=== PATIENT | female | born 2000 | race Caucasian/White ===

== ENCOUNTER 2022-06-26 09:24 | Emergency (ER) | payer MEDICAID, SELFPAY ==
[2022-06-26 09:25] VITALS: BP 124/69; PULSE 82; RESP 17; TEMP 36.7; O2SAT 99; BMI 30.2
--- NOTE | 2022-06-26 09:32 | PC.NURSE ---
pt ambulatory to restroom from registration area. No complications
--- NOTE | 2022-06-26 09:34 | INFXCTL.NOTE ---
0999 ED MD AT BEDSIDE FOR EVALUATION
--- NOTE | 2022-06-26 09:35 | PC.NURSE ---
KANCHAN BARLOW at for patient eval
--- NOTE | 2022-06-26 09:36 | US_ITS ---
FINAL REPORT TECHNIQUE: Sonographic images of the pelvis were obtained transvaginally. CLINICAL HISTORY: pain and bleeding,r/o torsion FINDINGS: The uterus is anteverted and anteflexed. It measures 7.9 x 4.9 x 4.1 cm. The endometrial stripe measures 4 mm. The myometrium is homogeneous. The cervix is within normal limits. The right ovary measures 2.6 x 3.7 x 2.3 cm. It is normal in appearance. The left ovary measures 4.7 x 3.6 x 3.2 cm. There is a septated 3.2 cm cyst.. Color imaging to the ovaries is within normal limits. There is no free fluid. IMPRESSION: 1. Normal sonographic appearance to the uterus. 2. Complex left ovarian cyst, likely functional. Recommend 6 or 10 week follow-up ultrasound. 3. No convincing evidence of ovarian torsion. Reviewed, Interpreted and Dictated by Chanda Lozoya MD Transcribed by Zehra Brian Authenticated and [facility]
--- NOTE | 2022-06-26 09:37 | PC.NURSE ---
UA sent to lab
[2022-06-26 09:46] LABS: Microscopic, Urine URINE MICROSCOPIC (MICROSCOPIC)
[2022-06-26 09:48] LABS: Appearance,Urine CLOUDY (Clear); Bilirubin,Urine Negative (Negative); Blood, Urine 3+ (Negative); Color,Urine RED (Yellow); Glucose,Urine (UA) Negative (Negative); Ketones,Urine Negative (Negative); Leukocyte Esterase,Urine Negative (Negative); Nitrate,Urine POSITIVE (Negative); PH,Urine 7.5 (5.0-8.5); Protein,Urine 1+ (Negative); Urobilinogen,Urine 0.2 EU/dl (0.2)
--- NOTE | 2022-06-26 09:48 | PC.NURSE ---
0946 THIS RN AT BEDSIDE WITH ED MD FOR VAG EXAM, PT TOLERATED WELL
--- NOTE | 2022-06-26 09:50 | PC.NURSE ---
RADIOLOGY NOTIFIED OF ORDERED US
--- NOTE | 2022-06-26 10:01 | HMH.EDGENADL ---
Discharge Plan Disposition Patient Disposition: Home, Self-Care Condition: Good Prescriptions Prescriptions: New hydrocodone-acetaminophen 5-325 mg tablet 1 tab PO Q8H PRN (Reason: pain) Qty: 7 0RF Referrals Follow up/Referrals: Provider,Referral, [Primary Care Provider] - See instructions Activity Restrictions/Add. Instructions Additional Instructions/Restrictions: Pelvic rest: Avoid exertion and intercourse until symptoms subside Clinical Impressions Clinical Impression: Vaginal bleeding, Ovarian cyst Discharge ED Provider: Dmitri Aj General Adult HPI General Chief complaint: Vaginal Bleeding Stated complaint: Bleeding 10 days abd pain Time Seen by Provider: 06/26/22 09:33 Mode of Arrival: Ambulatory Source of Information: Patient Limitations: No Limitations Description of Symptoms (Recalled from ER Triage Doc. by RN): PT WITH HX OF ENDOMETRIOSIS. REPORTS 10 DAYS OF VAGINAL BLEEDING WITH CLOTS AND ABDOMINAL PAIN History of Present Illness HPI narrative: Patient presents with a 10-day history of vaginal bleeding including passing of clots and lower abdominal discomfort. She states she had similar episodes in the past and has been told that she has endometriosis. She denies at this time. She describes her symptoms as moderate to severe and without exacerbating or alleviating factors. Related Data Previous Rx's Medication Instructions Recorded hydrocodone 5 mg-acetaminophen 325 1 tab PO Q8H PRN pain #7 tabs 06/26/22 mg tablet Allergies Allergy/AdvReac Type Severity Reaction Status Date / Time amoxicillin Allergy Verified 06/26/22 10:22 Penicillins Allergy Verified 06/26/22 10:22 Sulfa (Sulfonamide Allergy Verified 06/26/22 10:22 Antibiotics) [facility] Disclaimer: The information contained in this section may have been updated after the patient was seen, as this information can be updated by other users. Medical History Endometriosis Surgical History H/O section History of tonsillectomy and adenoidectomy Hx of cholecystectomy Hx of tubal ligation Family History Other No significant family history Social History Smoking Status: Never smoker alcohol intake: never current occupational status: unemployed Travel in the last 8 weeks: None ROS Obtained: Yes All systems reviewed & no additional complaints except as documented Physical Exam General General appearance: alert and in no apparent distress Head Head exam: atraumatic, normocephalic and normal inspection Eye Eye exam: Present normal appearance, PERRL and EOMI ENT ENT exam: Present normal exam, normal oropharynx, mucous membranes moist, TM's normal bilaterally and normal external ear exam Neck Neck exam: Present normal inspection, full ROM and trachea midline; Absent meningismus or lymphadenopathy Chest Chest inspection: Present normal inspection and symmetric chest wall rise; Absent tenderness Respiratory Respiratory exam: Present normal lung sounds bilaterally; Absent respiratory distress Cardiovascular Cardiovascular exam: Present regular rate and normal rhythm; Absent JVD Abdominal Exam Abdominal exam: Present other (There is lower abdominal tenderness without rebound or guarding.) External exam: Present other (Blood clots are present vaginally without appreciable active bleeding. The os is closed. There is no cervical motion tenderness although there is adnexal and uterine tenderness) Extremities Exam Extremities exam: Present normal inspection, full ROM and normal capillary refill; Absent calf tenderness Back Exam Back exam: Present normal inspection; Absent tenderness Neurological Exam Neurological exam: Present alert and oriented X3 Psychiatric Psychiatric exam: Present
[2022-06-26 10:15] LABS: Bacteria,Urine Trace /lpf; RBC,Urine TNTC #/hpf (0-3); WBC,Urine Occasional #/hpf (0-3)
--- NOTE | 2022-06-26 10:15 | PC.NURSE ---
pt to US
[2022-06-26 10:16] LABS: Urine Pregnancy, HCG Qual. Negative (Negative)
--- NOTE | 2022-06-26 10:35 | PC.NURSE ---
PT RETURNED FROM US, REPORT GIVEN TO DR. CENTENO PER Jayy CHANEY, RADIOLOGY
[2022-06-26 10:42] VITALS: BP 115/65; PULSE 74; O2SAT 98
--- NOTE | 2022-06-26 10:47 | PC.NURSE ---
Rounded on patient; Call light within reach, pt given a pillow for comfort and is aware that we are waiting on test results.
[2022-06-26 11:11] LABS: Basophils # 0.1 K/mm3 (0-0.2); Eosinophils % 14.5 % (0.1-12.0); Hematocrit 36.3 % (37.0-47.0); Hemoglobin 11.6 g/dL (12.2-16.2); Lymphocytes # 2.4 K/mm3 (0.7-4.5); Lymphocytes % 33.8 % (10-50); Mean Corpuscular HGB Conc 31.8 g/dL (31.8-35.4); Mean Corpuscular Hemoglobin 27.7 pg (27.0-31.2); Mean Corpuscular Volume 87.1 fl (81-99); Mean Platelet Volume 8.7 fl (7.4-10.4); Monocytes # 0.4 K/mm3 (0.1-1.0); Monocytes % 5.3 % (1.7-9.3); Neutrophils # 3.1 K/mm3 (1.8-7.8); Neutrophils % 44.6 % (37.0-80.0); Platelet Count 279 K/mm3 (142-424); Red Blood Count 4.17 M/mm3 (4.20-5.40); Red Cell Distribution Width 16.2 % (11.5-17.5)
[2022-06-26 11:25] LABS: Chloride 111 mmol/L (98-107); Sodium 143 mmol/L (136-145)
--- NOTE | 2022-06-26 11:25 | PC.NURSE ---
PT UPDATED ON POC BY DR CENTENO AT THIS TIME
[2022-06-26 11:26] LABS: Potassium 4.2 mmoL/L (3.5-5.1)
[2022-06-26 11:28] LABS: Alanine Aminotransferase 31 U/L (12-78); Albumin/Globulin Ratio 1.3 (1.1-1.8); Alkaline Phosphatase 71 U/L (38-126); Anion Gap 8.2 mEq/L (5-15); Aspartate Amino Transferase 32 U/L (14-36); Bilirubin,Total 0.4 mg/dl (0.2-1.3); Blood Urea Nitrogen 11 mg/dl (7-17); Calcium 8.7 mg/dl (8.4-10.2); Carbon Dioxide 28 mmol/L (22.0-30.0); Creatinine Clearance Estimated 143 mL/min (50-200); Estimated Glomerular Filt Rate 104 ml/min (>60); GFR (African American) 125 ML/MIN (>60); Glucose 82 mg/dl (74-100)
[2022-06-26 11:35] VITALS: BP 111/72; PULSE 78; RESP 16; TEMP 36.7; O2SAT 98
[2022-06-26 12:25] LABS: Activated Partial Thrombo Time 25.1 seconds (22.8-30.6); INR 0.96 (0.9-1.1); Prothrombin Time 10.4 seconds (10.1-12.5)
== END 2022-06-26 11:50 | disposition home or self-care (01) ==
PROVIDERS: Emergency Provider Emergency Medicine
DX: N93.9 Abnormal uterine and vaginal bleeding, unspecified (principal); N80.9 Endometriosis, unspecified; Z90.49 Acquired absence of other specified parts of digestive tract; Z98.51 Tubal ligation status; N83.202 Unspecified ovarian cyst, left side
CPT/HCPCS: 76830; 80053; 81001; 81025; 85025; 85610; 85730; 96374; 99285